=== PATIENT | male | born 1975 | race Caucasian/White ===

== ENCOUNTER 2016-04-22 15:36 | Emergency (ER) | payer MEDICAID, OTHER ==
[2016-04-22 15:49] VITALS: BP 103/67; PULSE 89; RESP 16; O2SAT 97
--- NOTE | 2016-04-22 17:49 | ED.REPORT ---
HPI-Trauma Minor / Fall Date of Service Apr 22, 2016 ED Provider: Alena Hurtado History of Present Illness: left ankle pain s/p fall left leg gave out. primary care is no one. 11/04 with walking 4/10 at rest. walking out to clear brush out of driveway, stepped sideways on a rock and fell. Happened on Saturday Nursing Notes Stated Complaint: POSSIBLE LEFT BROKEN ANKLE Chief Complaint: Extremity Trauma Nursing Notes Reviewed: Yes Allergies: Coded Allergies: No Known Allergies (Unverified , 04/22/16) General Time Seen by MD: 17:27 Chief Complaint Fall, Other (ankle pain) Hx Obtained From: Patient Onset Occurred: 3 days ago Symptom Duration: Since onset Past Medical History Past Medical History Denies: Asthma Past Surgical History Reports: Tonsillectomy Smoking History Never Smoker Social History Alcohol Use: Denies alcohol use Drug Use: Denies drug use Occupation lives by self, no work or school 04/22/2016 Ambulatory Status Independent Review of Systems Basic Review of Systems Cardiovascular: No chest pain, No dyspnea on exertion, No orthopnea, No parox noct dyspnea, No palpitations Hematologic: No bleeding, No bruising Physical Exam Initial Vital Signs Vital Signs (First) Date Time Temp Pulse Resp B/P Pulse Ox O2 Delivery O2 Flow Rate FiO2 04/22/16 15:49 36.6 89 16 103/67 97 Room Air Initial VS: Reviewed, Vital signs normal Head / Eyes: Atraumatic, Normocephalic, PERRL ENT: Mucous membranes moist, Conjunctiva normal, No scleral icterus Respiratory: Breath sounds normal, Clear to auscultation, No respiratory distress Cardiovascular: Regular rate & rhythm, Heart sounds normal, Intact distal pulses Abdomen / GI: Soft, Non-tender, No guarding, No rebound, No distention Back: No CVA tenderness Lymphatic: No lymphadenopathy Extremities: Vascular intact, Neuro intact, No swelling, No tenderness Skin: Warm, Dry, No cyanosis Neurologic: Alert, Oriented, Nonfocal Psychiatric: Mood/affect normal, Behavior normal, Normal thought content General/Constitutional: Awake, Alert, No acute distress, Well appearing, Well developed, Well hydrated, Well nourished, Cooperative, Not toxic appearing Neck: Atraumatic, Supple, No meningismus Respiratory / Chest: Atraumatic, Breath sounds NL, Breath sounds = bilat, No respiratory distress Cardiovascular: Heart rate NL, Regular rhythm, Heart sounds NL, No gallop left ankle with mild swelling. no ecchymosis noted. cap refill less than 2 sec. Has full range of motion of foot, limited ankle secondary to pain. Sensation intact distally Interpretation & Diagnostics X-Ray Interpretation Xray Interpretation: TECHNIQUE: 3 views of the ankle were acquired. COMPARISON: None. FINDINGS: Bones: No fractures or dislocations. Ankle mortise is normally aligned. No suspicious bony lesions. Soft tissues: No tibiotalar joint effusion. Achilles tendon appears normal. IMPRESSION: No abnormality is seen in these 3 views of the right ankle. There is soft tissue swelling over the lateral malleolus. Re-Eval/Medical Decision Med Decision/Clinical Course 40 year old male present to the ER s/p fall on Saturday for left ankle pain. Exam indicates mild swelling, no ecchymosis, sensation intact. negative x-ray. Exam not consistent with compartment syndrome, cellulitis or fracture. Summary of Info: patient states no primary care. REview of [employer] indicates he sees Jeff Guerra monthly for lyrica usually 100 to 120. Also sees Herve Vargas who provides diazepam 5 mg 60 a month. Discharge & Departure Impression: Primary Impression: Ankle sprain Encounter type: initial encounter Laterality: left Disposition: Home Patient Instructions: Ankle Sprain (ED), Ankle Sprain Exercises (GEN) Additional Instructions: The x-ray is negative for any bony damage. Continue with elevation. Use ice 15 minutes on and 15 minutes off for 3 to 4 days. Must have a cloth between the ice and your skin. Start using the list of ankle exercises to rehab your ankle. Please follwo with primary care in 7 to 10 days for a recheck. I do not have resources for [place]. You can follow with the residency clinic. Another option is to talk with your friends and see who they see for primary care. . Use ibuprofen 800 mg up to 3 times a day to decrease the swelling and pain. Continue with your regular medications of lyrica and diazepam. Referrals: [facility] EDSupervising Provider for APC: Jaydon Zuniga MD copies to: [facility] Alena Hurtado Apr 22, 2016 17:49
[2016-04-22] MEDS ORDERED: Ketorolac 30 mg/mL 2 mL Inj IM ONE (18:00)
--- NOTE | 2016-04-22 19:00 | DRSVH ---
PROCEDURE: X-RAY LEFT TIBIA/FIBULA, TWO VIEWS ([id number]) INDICATIONS: fall TECHNIQUE: 2 views of the tibia and fibula were acquired. COMPARISON: None. FINDINGS: Bones: No fractures or dislocations. No suspicious bony lesions. Soft tissues: No suspicious soft tissue calcifications or masses. Lateral soft tissue swelling aroun d the ankle is present. IMPRESSION: No acute bony abnormality in the tibia and fibula is seen. Lateral ankle soft tissue swel ling is present. Dictated by: Kenny Morales M.D. on 04/22/2016 at 18:58 Approved by: Kenny Morales M.D. on 04/22/2016 at 18:58
--- NOTE | 2016-04-22 19:00 | DRSVH ---
PROCEDURE: X-RAY LEFT ANKLE, MINIMUM THREE VIEWS ([id number]) INDICATIONS: fall TECHNIQUE: 3 views of the ankle were acquired. COMPARISON: None. FINDINGS: Bones: No fractures or dislocations. Ankle mortise is normally aligned. No suspicious bony lesions . Soft tissues: No tibiotalar joint effusion. Achilles tendon appears normal. IMPRESSION: No abnormality is seen in these 3 views of the right ankle. There is soft tissue swelling over the lateral malleolus. Dictated by: Kenny Morales M.D. on 04/22/2016 at 18:57 Approved by: Kenny Morales M.D. on 04/22/2016 at 18:58
== END 2016-04-22 18:42 | disposition home or self-care (01) ==
LOC: SED 15:36
DX: S93.402A Sprain of unspecified ligament of left ankle, initial encounter (principal); W18.31XA Fall on same level due to stepping on an object, initial encounter; Y93.01 Activity, walking, marching and hiking; Y92.014 Private driveway to single-family (private) house as the place of occurrence of the external cause; Y99.8 Other external cause status